=== PATIENT | female | born 1975 | race African-American/Black ===

== ENCOUNTER 2017-05-02 18:49 | Emergency (ER) | payer MEDICAID ==
[~2017-05-02] VITALS: Ht 162.6 cm; Wt 60.0 kg
[~2017-05-02 18:49] MED LIST: ALBU05; LISI-186
[2017-05-02] MEDS ORDERED: CARI350T (18:59)
[2017-05-02] MEDS ORDERED: KETOROLAC 60MG/2ML VIAL IM ONE (20:00)
[2017-05-02] MEDS ORDERED: DEXAMETHASONE 10 MG/ML VIAL IM ONE (20:00)
[2017-05-02] MEDS ORDERED: LORAZEPAM 1MG TABLET PO ONE (20:00)
[2017-05-03 00:05] VITALS: BP 129/74
== END 2017-05-03 00:06 | disposition home or self-care (01) ==
LOC: ER 18:49
DX: S16.1XXA Strain of muscle, fascia and tendon at neck level, initial encounter (principal); S39.012A Strain of muscle, fascia and tendon of lower back, initial encounter; M25.552 Pain in left hip; M25.551 Pain in right hip; M25.511 Pain in right shoulder; I10 Essential (primary) hypertension; F17.200 Nicotine dependence, unspecified, uncomplicated; Z88.8 Allergy status to other drugs, medicaments and biological substances; V43.52XA Car driver injured in collision with other type car in traffic accident, initial encounter; Y93.89 Activity, other specified; Y92.89 Other specified places as the place of occurrence of the external cause; Y99.8 Other external cause status
CPT/HCPCS: 72125; 73030; 73521; 81025; 96372; 99284; J1100; J1885; Z7610